=== PATIENT | male | born 1950 | race Caucasian/White ===

== ENCOUNTER 2016-09-28 02:31 | Emergency (ER) | payer OTHER, MEDICARE ==
[2016-09-28 04:01] LABS: BASOPHIL 0.1 % (0-2); EOSINOPHIL 1.2 % (0-7); HCT 45.5 % (42.0-52.0); HGB 15.7 g/dl (13.2-18.0); LYMPHOCYTE 10.2 % (15-48); MCH 30.8 pg (25.0-31.0); MCHC 34.5 g/dL (32.0-36.0); MCV 89.4 fL (78.0-100.0); MONOCYTE 8.9 % (0-12); MPV 10.2 fL (6.0-9.5); NEUTROPHIL 79.6 % (41-80); PLT 226 K/uL (150-400); RBC 5.09 M/uL (4.70-6.00); RDW 14.8 % (11.5-14.0); WBC 13.7 K/uL (4.0-10.5)
[2016-09-28 04:18] LABS: ALBUMIN 4.3 g/dL (3.4-4.8); BILIRUBIN - TOTAL 0.4 mg/dL (0.1-1.0); CREATININE 1.3 mg/dL (0.7-1.2); GLOBULIN (CALCULATION) 2.6 g/dL (2.2-4.2); POTASSIUM 3.9 mmol/L (3.5-5.1); TOTAL PROTEIN 6.9 g/dL (6.4-8.3)
[2016-09-28 05:29] LABS: BILIRUBIN NEGATIVE (NEGATIVE); BLOOD TRACE-LYSED Ery/uL (NEGATIVE); CLARITY CLEAR (CLEAR); COLOR YELLOW (YELLOW); GLUCOSE (U) 3+ mg/dL (NORMAL); KETONE (U) NEGATIVE (NEGATIVE); LEUKOCYTES 1+ Leu/uL (NEGATIVE); NITRITE NEGATIVE (NEGATIVE); PROTEIN NEGATIVE (NEGATIVE); SPECIFIC GRAVITY <=1.005 (1.001-1.030); UROBILINOGEN 0.2 mg/dL (0.2-1.0)
[2016-09-28 05:31] LABS: BACTERIA TRACE; SQUAMOUS EPITHELIAL CELLS RARE; URINARY RBC RARE
== END 2016-09-28 07:31 | disposition home or self-care (01) ==
LOC: FER 02:31
PROVIDERS: Emergency Medicine Emergency Medical Services
DX: R11.2 Nausea with vomiting, unspecified (principal); R19.7 Diarrhea, unspecified; E11.9 Type 2 diabetes mellitus without complications; I10 Essential (primary) hypertension; Z98.890 Other specified postprocedural states; Z79.899 Other long term (current) drug therapy
CPT/HCPCS: 36415; 80053; 81001; 82150; 83605; 83690; 85025; C9113; J1980; J2405; Q9967

== ENCOUNTER 2021-12-08 00:56 | Emergency (ER) | payer OTHER ==
[2021-12-08 01:12] LABS: BASOPHIL 0.4 % (0-2); EOSINOPHIL 1.6 % (0-7); HCT 52.5 % (42.0-52.0); HGB 17.5 g/dl (13.2-18.0); LYMPHOCYTE 13.5 % (15-48); MCHC 33.3 g/dL (32.0-36.0); MCV 90.1 fL (78.0-100.0); MONOCYTE 10.5 % (0-12); MPV 9.9 fL (6.0-9.5); NEUTROPHIL 73.7 % (41-80); NRBC 0; PLT 256 K/uL (150-400); RBC 5.83 M/uL (4.70-6.00); WBC 15.3 K/uL (4.0-10.5)
[2021-12-08 01:34] LABS: ALBUMIN 4.2 g/dL (3.4-5.0); BILIRUBIN - TOTAL 0.5 mg/dL (0.2-1.0); BUN/CREAT RATIO (CALC) 26.9 RATIO; CREATININE 1.08 mg/dL (0.67-1.17); GLOBULIN (CALCULATION) 3.4 g/dL; TOTAL PROTEIN 7.6 g/dL (6.4-8.2)
[2021-12-08 02:29] LABS: CORONAVIRUS 2019 SARS-COV-2 NEGATIVE (NEGATIVE); INFLUENZA A NAA NEGATIVE (NEGATIVE)
[2021-12-08] MEDS ORDERED: ONDANSETRON ODT4 MG PO (02:39)
== END 2021-12-08 02:48 | disposition home or self-care (01) ==
LOC: FER 00:56
PROVIDERS: Emergency Medicine
DX: E86.0 Dehydration (principal); R19.7 Diarrhea, unspecified; E11.9 Type 2 diabetes mellitus without complications; Z20.822 Contact with and (suspected) exposure to COVID-19; Z79.4 Long term (current) use of insulin; Z79.899 Other long term (current) drug therapy
CPT/HCPCS: 36415; 80053; 85025; J7030; U0002

== ENCOUNTER 2021-12-09 06:08 | Emergency (ER) | payer OTHER ==
[~2021-12-09 06:08] MED LIST: ONDANSETRON ODT4 MG PO
[2021-12-09 06:42] LABS: BASOPHIL 0.2 % (0-2); EOSINOPHIL 1.2 % (0-7); HCT 50.9 % (42.0-52.0); HGB 17.3 g/dl (13.2-18.0); LYMPHOCYTE 10.5 % (15-48); MCH 30.7 pg (25.0-31.0); MCV 90.2 fL (78.0-100.0); MONOCYTE 10.1 % (0-12); MPV 10.1 fL (6.0-9.5); NEUTROPHIL 77.6 % (41-80); NRBC 0; PLT 228 K/uL (150-400); RBC 5.64 M/uL (4.70-6.00); RDW 14.1 % (11.5-14.0); WBC 12.9 K/uL (4.0-10.5)
[2021-12-09 07:09] LABS: ALBUMIN 3.9 g/dL (3.4-5.0); BILIRUBIN - TOTAL 0.7 mg/dL (0.2-1.0); BUN/CREAT RATIO (CALC) 23.9 RATIO; CREATININE 1.09 mg/dL (0.67-1.17); GLOBULIN (CALCULATION) 3.4 g/dL; POTASSIUM 4.7 mmol/L (3.5-5.1); TOTAL PROTEIN 7.3 g/dL (6.4-8.2)
[2021-12-09 07:31] LABS: BILIRUBIN NEGATIVE (NEGATIVE); BLOOD NEGATIVE Ery/uL (NEGATIVE); CLARITY CLEAR (CLEAR); COLOR YELLOW (YELLOW); GLUCOSE (U) 3+ mg/dL (NORMAL); LEUKOCYTES NEGATIVE Leu/uL (NEGATIVE); NITRITE NEGATIVE (NEGATIVE); PROTEIN NEGATIVE (NEGATIVE); SPECIFIC GRAVITY 1.015 (1.001-1.030); UROBILINOGEN 0.2 mg/dL (0.2-1.0)
== END 2021-12-09 08:25 | disposition home or self-care (01) ==
LOC: FER 06:08
PROVIDERS: Emergency Medicine
DX: K52.9 Noninfective gastroenteritis and colitis, unspecified (principal); I10 Essential (primary) hypertension; E11.9 Type 2 diabetes mellitus without complications; Z79.4 Long term (current) use of insulin
CPT/HCPCS: 36415; 80053; 81003; 83690; 85025